=== PATIENT | male | born 1930 | race Caucasian/White ===

== ENCOUNTER 2021-07-20 06:30 | Emergency (ER) | payer MEDICARE ==
[~2021-07-20] VITALS: Ht 175.3 cm; Wt 63.5 kg
--- NOTE | 2021-07-20 06:30 | NUR ---
PT [facility] BLS. TAKEN TO BED 7
--- NOTE | 2021-07-20 06:32 | NUR ---
Dr. Parish examining patient.
--- NOTE | 2021-07-20 06:34 | NUR ---
REPORTS BLEEDING TO [facility] S/P TOOTH SX 2 DAYS AGO. PATIENT WALKED TO POLICE STATION FROM HOME FOR EVAL AND PD CONTACTED EMS. PATIENT HAS NO OTHER OCMPLAINTS, AMBULATORY, COAX4 WITH ER MD COOLEY.
[2021-07-20 06:36] VITALS: BP 148/68
[2021-07-20] MEDS ORDERED: TRANEXAMIC ACID 1,000 MG/10 ML VIAL MC ONE (06:40)
--- NOTE | 2021-07-20 07:26 | NUR ---
PATIENT SITTING ON THE EDGE OF THE BED.
[2021-07-20] MEDS ORDERED: ACET-10509 PO (07:44)
--- NOTE | 2021-07-20 08:02 | NUR ---
DC Patient discharged with v/s stable. Written and verbal after care instructions ABOUT TOOTH INJURY given and explained. Patient alert, oriented and verbalized understanding of instructions. Ambulatory with steady gait. All questions addressed prior to discharge. ID band removed. Patient advised to follow up with PMD. Rx of ACETAMONOPHEN given. Opportunity to ask questions provided and answered.
== END 2021-07-20 08:02 | disposition home or self-care (01) ==
LOC: MED 06:30
DX: K08.89 Other specified disorders of teeth and supporting structures (principal); K91.841 Postprocedural hemorrhage of a digestive system organ or structure following other procedure
CPT/HCPCS: 99283; J3490

== ENCOUNTER 2021-07-20 18:01 | Emergency (ER) | payer MEDICARE ==
[~2021-07-20] VITALS: Ht 170.2 cm; Wt 73.0 kg
[~2021-07-20 18:01] MED LIST: ACET-10509 PO
[2021-07-20 18:07] VITALS: BP 165/84
--- NOTE | 2021-07-20 18:31 | NUR ---
89 YO M BIB SELF WITH C/O MOUTH BLEEDING. PT STATES HE HAD TOOTH ROOT REMOVED ON THURSDAY AND HAS EXPERIENCED INTERMITTENT BLEEDING SINCE. WAS SEEN HERE LAST NIGHT FOR SAME SYMPTOMS AND STATES BLEEDING REOCCURRED. PT STATES PINCHING PAIN OF 2/10 OF MOUTH. DENIES DIZZINESS, HEADACHE. PATIENT HAS GAUZE IN MOUTH. MEDHX: DM ALLERGIES: RUBER
[2021-07-20 19:20] VITALS: BP 165/84
--- NOTE | 2021-07-20 19:20 | NUR ---
Patient discharged with v/s stable. Written and verbal after care instructions given and explained. Patient verbalized understanding. Ambulatory with steady gait. All questions addressed prior to discharge. Advised to follow up with PMD.
== END 2021-07-20 19:20 | disposition home or self-care (01) ==
LOC: MED 18:01
DX: K91.89 Other postprocedural complications and disorders of digestive system (principal); F41.9 Anxiety disorder, unspecified; I10 Essential (primary) hypertension; E11.9 Type 2 diabetes mellitus without complications; Z79.899 Other long term (current) drug therapy
CPT/HCPCS: 99281